=== PATIENT | male | born 1995 | race African-American/Black ===

== ENCOUNTER 2018-04-27 20:15 | Emergency (ER) | payer SELFPAY ==
[~2018-04-27] VITALS: Ht 175.3 cm; Wt 70.0 kg
[2018-04-27 21:00] VITALS: BP 108/70
[2018-04-27] MEDS ORDERED: FLUCONAZOLE 200MG TABLET PO ONE (21:30)
== END 2018-04-27 21:46 | disposition home or self-care (01) ==
LOC: ER 20:15
DX: B35.3 Tinea pedis (principal); F12.10 Cannabis abuse, uncomplicated; F17.200 Nicotine dependence, unspecified, uncomplicated
CPT/HCPCS: 99283; 99406; A4217